=== PATIENT | female | born 1975 | race African-American/Black ===

== ENCOUNTER 2019-03-22 23:27 | Emergency (ER) | payer OTHER ==
--- NOTE | 2019-03-22 23:35 | EDM.PDOC ---
ED HPI GENERAL MEDICAL PROBLEM - General Chief Complaint: Skin Complaint Stated Complaint: RASH ON RT HAND Time Seen by Provider: 03/22/19 23:34 Source of Information: Reports: Patient History Limitations: Reports: No Limitations - History of Present Illness INITIAL COMMENTS - FREE TEXT/NARRATIVE: HISTORY AND PHYSICAL: History of present illness: Patient is a 43-year-old female presents to the ED with complaint of rash since yesterday. She states it is itchy, all over her body, and moves. She denies recent new medications, foods, lotions, etc. No one else in the house with a rash. She also complains of a sore throat x 2 days. denies fevers, chills, nausea, vomiting, abdominal pain, chest pain, cough, SOB. She denies mouth or throat swelling or itching. Review of systems: As per history of present illness and below otherwise all systems reviewed and negative. Past medical history: As per history of present illness and as reviewed below otherwise noncontributory. Surgical history: As per history of present illness and as reviewed below otherwise noncontributory. Social history: No reported history of drug or alcohol abuse. Family history: As per history of present illness and as reviewed below otherwise noncontributory. Physical exam: General: Patient sitting comfortably in no acute distress and nontoxic appearing HEENT: Tonsils area 3+ and erythematous with exudate. Atraumatic, normocephalic , pupils reactive, negative for conjunctival pallor or scleral icterus, mucous membranes moist, throat clear, neck supple, nontender, trachea midline. No meningeal signs. Lungs: Clear to auscultation, breath sounds equal bilaterally, chest nontender. Heart: S1S2, regular, negative for clicks, rubs, or overt murmur. Abdomen: Soft, nondistended, nontender. Negative for masses or hepatosplenomegaly. Negative for costovertebral tenderness. No rigidity, rebound , guarding. Pelvis: Stable nontender. Genitourinary: Deferred. Rectal: Deferred. Skin: Urticaria noted of the forearms and trunk Extremities: Atraumatic, negative for cords or calf pain. Neurovascular unremarkable. Neuro: Awake, alert, oriented. Cranial nerves II through XII unremarkable. Cerebellum unremarkable. Motor and sensory unremarkable throughout. Exam nonfocal. Notes: Diagnostics: Therapeutics: Solumedrol 125mg IM Prescriptions: Amoxicillin Medrol dosepak Impression: Urticaria, acute tonsillitis Plan: Take medications as instructed Take benadryl every 4-6 hours for rash and itching Follow up with primary care provider Return to ED as needed as discussed Definitive disposition and diagnosis as appropriate pending reevaluation and review of above. - Related Data Allergies Allergy/AdvReac Type Severity Reaction Status Date / Time No Known Allergies Allergy Verified 03/22/19 23:29 Home Meds: Home Meds Amoxicillin 500 mg PO BID 10 Days #20 capsule 03/22/19 [Rx] methylPREDNISolone [Medrol] 4 mg PO ASDIRECTED #1 tab.ds.pk 03/22/19 [Rx] ED ROS GENERAL - Review of Systems Review Of Systems: ROS reveals no pertinent complaints other than HPI. ED EXAM, SKIN/RASH Exam: See Below (see dictation) Course - Vital Signs Last Recorded V/S: Last Vital Signs Temp 97 F 03/22/19 23:35 Pulse 105 H 03/22/19 23:35 Resp 18 03/22/19 23:35 BP 146/100 H 03/22/19 23:35 Pulse Ox 95 03/22/19 23:35 - Orders/Labs/Meds Meds: Medications Discontinued Medications Generic Name Dose Route Start Last Admin Trade Name Freq PRN Reason Stop Dose Admin Methylprednisolone Sodium Succinate 125 mg 03/22/19 23:45 Solu-Medrol IM 03/22/19 23:46 ONETIME ONE Departure - Departure Time of Disposition: 23:45 Disposition: Home, Self-Care 01 Condition: Good Clinical Impression: Urticaria, Tonsillitis - Discharge Information Prescriptions: Amoxicillin 500 mg PO BID 10 Days #20 capsule methylPREDNISolone [Medrol] 4 mg PO ASDIRECTED #1 tab.ds.pk Referrals: PCP,None [Primary Care Provider] - Forms: ED Department Discharge Additional Instructions: The following information is given to patients seen in the emergency department who are being discharged to home. This information is to outline your options for follow-up care. We provide all patients seen in our emergency department with a follow-up referral. The need for follow-up, as well as the timing and circumstances, are variable depending upon the specifics of your emergency department visit. If you don't have a primary care physician on staff, we will provide you with a referral. We always advise you to contact your personal physician following an emergency department visit to inform them of the circumstance of the visit and for follow-up with them and/or the need for any referrals to a consulting specialist. The emergency department will also refer you to a specialist when appropriate. This referral assures that you have the opportunity for follow-up care with a specialist. All of these measure are taken in an effort to provide you with optimal care, which includes your follow-up. Under all circumstances we always encourage you to contact your private physician who remains a resource for coordinating your care. When calling for follow-up care, please make the office aware that this follow-up is from your recent emergency room visit. If for any reason you are refused follow-up, please contact the [facility] Emergency Department at and asked to speak to the emergency department charge nurse. [facility] [address] [place] [id number] [place] [address] Take medications as instructed Take benadryl every 4-6 hours for rash and itching Follow up with primary care provider Return to ED as needed as discussed
[2019-03-22] MEDS ORDERED: methylPREDNISolone Sodium Succinate 125 MG/2 ML SDV IM ONE (23:45)
[2019-03-23] MEDS ORDERED: hydrOXYzine Pamoate 25 MG Cap PO ONE (00:03)
[2019-03-23] MEDS ORDERED: hydrOXYzine HCl 25 MG Tab PO ONE (00:03)
== END 2019-03-23 00:14 | disposition home or self-care (01) ==
LOC: MW.ED 23:27
DX: L50.9 Urticaria, unspecified (principal); J03.90 Acute tonsillitis, unspecified
CPT/HCPCS: 96372; 99282; A9270; J2930; 99283